=== PATIENT | male | born 1965 | race Caucasian/White ===

== ENCOUNTER → 2018-12-10 | Outpatient (CLI) | payer OTHER ==
[~2018-12-10] MED LIST: ALBIPROI INH; AZIT250 PO; HYDGUAL120 PO
== END | disposition home or self-care (01) ==
LOC: LAB EV 12:06 → LAB SHORT 12:06
DX: J02.9 Acute pharyngitis, unspecified (principal)
CPT/HCPCS: 87070

== ENCOUNTER → 2019-07-16 | Outpatient (CLI) | payer OTHER ==
[~2019-07-16] MED LIST changes: +ACET325 PO; +CEFU500T30 PO; +DOCU100 PO; +Florastor250 MG PO; +HYDR1TAB94 PO; +IBUP400 PO; +Nicoderm Cq1 EAC1 TOP
== END ==
LOC: LAB 09:00 → LAB SHORT 09:00
DX: R30.0 Dysuria (principal)
CPT/HCPCS: 87077; 87086; 87186

== ENCOUNTER 2019-07-27 20:30 | Inpatient (IN) | payer OTHER ==
[~2019-07-27] VITALS: Ht 175.3 cm; Wt 89.4 kg
[~2019-07-27 20:30] MED LIST changes: -ACET325 PO; -CEFU500T30 PO; -DOCU100 PO; -Florastor250 MG PO; -HYDR1TAB94 PO; -IBUP400 PO; -Nicoderm Cq1 EAC1 TOP
[2019-07-27 21:05] LABS: BASOPHILS ABSOLUTE AUTO 0.05 K/mm3 (0.00-0.23); BASOPHILS PERCENT AUTO 0 % (0-2); EOSINOPHILS ABSOLUTE AUTO 0.18 K/mm3 (0.00-0.68); EOSINOPHILS PERCENT AUTO 1 % (0-6); Hemoglobin 14.1 g/dL (13.5-17.5); IMMATURE GRAN ABSOLUTE AUTO 0.07 K/mm3 (0.00-0.10); IMMATURE GRAN PERCENT AUTO 0 % (0-1); LYMPHOCYTES ABSOLUTE AUTO 1.92 K/mm3 (0.84-5.20); LYMPHOCYTES PERCENT AUTO 10 % (21-46); MONOCYTES ABSOLUTE AUTO 1.47 K/mm3 (0.16-1.47); MONOCYTES PERCENT AUTO 7 % (4-13); Mean Corpuscular HGB 29.7 pg (26.0-34.0); Mean Corpuscular HGB Conc 33.6 g/dL (31.5-36.5); Mean Corpuscular Volume 88 fL (80-100); Mean Platelet Volume 9.4 fL (9.1-12.4); NEUTROPHILS ABSOLUTE AUTO 16.44 K/mm3 (1.96-9.15); NEUTROPHILS PERCENT AUTO 82 % (41-73); Platelet Count 282 K/mm3 (150-400); RDW Coefficient Variation 14.3 % (11.7-14.2); RDW Standard Deviation 46.2 fL (35.1-46.3); Red Blood Cell Count 4.75 M/mm3 (4.30-5.90); White Blood Cell Count 20.13 K/mm3 (4.00-11.30)
[2019-07-27 21:19] LABS: Bilirubin, Urine Neg (Neg); Blood, Urine 5+ (Neg); Glucose Qualitative, Urine Neg (Neg); Ketones, Urine Neg (Neg); Leukocyte Esterase, Urine 3+ (Neg); Nitrite, Urine Pos (Neg); Protein, Urine 3+ (Neg); Source, Urine Clean Catch; Specific Gravity, Urine 1.015 (1.003-1.022); Urobilinogen, Urine NORM (Normal)
[2019-07-27 21:23] LABS: Alanine Aminotransfer (ALT/SGP 41 U/L (12-78); Albumin, Blood 3.4 g/dL (3.4-5.0); Albumin/Globulin Ratio 0.8 (0.8-1.8); Alk Phos 94 U/L (50-136); Anion Gap 5 mmol/L (6-16); Aspartate Aminotrans (AST/SGOT 23 U/L (12-37); Bilirubin, Total 0.3 mg/dL (0.1-1.0); Blood Urea Nitrogen 22 mg/dL (8-24); Bun/Creatinine Ratio 21.6 (12.0-20.0); CO2, Blood 27 mmol/L (21-32); Chloride, Blood 107 mmol/L (98-108); Creatinine, Blood 1.02 mg/dL (0.60-1.20); Glomerular Filtration Rate >60 (60-); Glucose, Blood 109 mg/dL (70-99); Potassium, Blood 4.3 mmol/L (3.5-5.5); Sodium, Blood 139 mmol/L (136-145); Total Protein, Blood 7.4 g/dL (6.4-8.2)
[2019-07-27 21:26] LABS: Appearance, Urine Cloudy (Clear); Color, Urine Yellow (P-Yellow)
[2019-07-27 21:27] LABS: Bacteria Many /hpf; Squamous Epithelial Cells Rare /hpf (Few); White Blood Cells, Urine TNTC /hpf (0-5)
[2019-07-28] MEDS ORDERED: IBUP400 PO (00:29)
[2019-07-28] MEDS ORDERED: ACET325 PO (00:30)
[2019-07-28 05:12] LABS: BASOPHILS ABSOLUTE AUTO 0.03 K/mm3 (0.00-0.23); BASOPHILS PERCENT AUTO 0 % (0-2); EOSINOPHILS ABSOLUTE AUTO 0.04 K/mm3 (0.00-0.68); EOSINOPHILS PERCENT AUTO 0 % (0-6); Hematocrit 39.3 % (37.0-53.0); Hemoglobin 13.3 g/dL (13.5-17.5); IMMATURE GRAN PERCENT AUTO 1 % (0-1); LYMPHOCYTES ABSOLUTE AUTO 2.06 K/mm3 (0.84-5.20); LYMPHOCYTES PERCENT AUTO 10 % (21-46); MONOCYTES ABSOLUTE AUTO 1.75 K/mm3 (0.16-1.47); MONOCYTES PERCENT AUTO 9 % (4-13); Mean Corpuscular HGB 29.4 pg (26.0-34.0); Mean Corpuscular HGB Conc 33.8 g/dL (31.5-36.5); Mean Corpuscular Volume 87 fL (80-100); Mean Platelet Volume 9.9 fL (9.1-12.4); NEUTROPHILS ABSOLUTE AUTO 16.19 K/mm3 (1.96-9.15); NEUTROPHILS PERCENT AUTO 80 % (41-73); Platelet Count 253 K/mm3 (150-400); RDW Coefficient Variation 14.3 % (11.7-14.2); RDW Standard Deviation 45.7 fL (35.1-46.3); Red Blood Cell Count 4.53 M/mm3 (4.30-5.90); White Blood Cell Count 20.17 K/mm3 (4.00-11.30)
[2019-07-28 05:39] LABS: Anion Gap 8 mmol/L (6-16); Blood Urea Nitrogen 20 mg/dL (8-24); Bun/Creatinine Ratio 22.2 (12.0-20.0); CO2, Blood 23 mmol/L (21-32); Calcium, Blood 8.4 mg/dL (8.5-10.1); Chloride, Blood 107 mmol/L (98-108); Glomerular Filtration Rate >60 (60-); Glucose, Blood 106 mg/dL (70-99); Potassium, Blood 4.2 mmol/L (3.5-5.5); Sodium, Blood 138 mmol/L (136-145)
--- NOTE | 2019-07-28 13:51 | NUR ---
PATIENT BACK FROM STENT TO KIDNEY PROCEDURE ABOUT 10 MINUTES. STARTED SHAKING, C/O INCREASE PAIN "50", AND PER PCU SUSTAINED HEART RATE OF 160 SINUS TACH. RAPID CALLED. CAME IN AND TALKS TO PATIENT AND RELATIVE. GIVEN; TORADOL, FENTANYL AND TYLENOL PRIOR TO RAPID. APRESOLINE GIVEN PER ORDERS. PATIENT TRANSFERRED TO ICU. REPORT TO NURSE ZAHEER ABDALLA RN.
--- NOTE | 2019-07-28 14:27 | NUR ---
TRANSFER: PT ARRIVED TO ICU 11 VIA BED. REPORT RECEIVED FROM KITTY MENEZES. PT DISORIENTED, FEBRILE WITH TEMP 103, HR 130S. WITHIN 20 MIN OF BEING IN THE ROOM PT'S FEVER BROKE WITH TEMP DOWN TO 97.6F. PT DIAPHORETIC WITH FEVER BREAKING. HR DOWN TO 1 TEENS, BP 125/76 AND PT ORIENTED AGAIN. NEW IV STARTED, ROCEPHIN HAS BEEN GIVEN. NEPHROSTOMY BAG TO R LOWER BACK. SM AMT OF RED DRAINAGE IN THE TUBING, NOTHING IN THE BAG. PT'S FAMILY AT THE BEDSIDE. CONTINUING TO MONITOR.
--- NOTE | 2019-07-28 14:46 | NUR ---
Upon responding to a rpid response call for rm [id number], I met patient's spouse, Joann. I helped rely info to her and explain what was happening and where he was being taken (ICU-11) and why. I provided emotional support and a calming presents. I then walked her over to the [facility] and sat with her and talked about her move to [place] less than a year ago, her family unit complications and about her concerns for the patient. After being told that all is clear to rejoin her , I walked with her to patient's room and sat with her as they got settled, I talked with patient about how he is doing and how he is processing it all. They thanked me for the support as I left. I will continue to remain available to patient and family.
--- NOTE | 2019-07-28 17:34 | NUR ---
SHIFT SUMMARY: PT HAS BEEN RESTING IN BED SINCE ARRIVAL ON UNIT. SINCE HIS TEMEPRATURE CAME DOWN HE HAS NOT HAD ANY ISSUES WITH HR, DELIRIUM OR BP. HIS PAIN HAS BEEN CONTROLLED WELL AND HE WAS ABLE TO NAP FOR A COUPLE HOURS. HIS NEPHROSTOMY TUBE HAS RED, CLOUDY OUTPUT. HE VOIDED ONCE AND IT WAS DARK, TEA COLORED URINE. HE GOT UP TO THE CHAIR FOR HIS LINENS TO BE CHANGED AND IS BACK IN BED NOW. HE IS EATING A LITTLE BIT OF HIS DINNER CURRENTLY. NO OTHER REQUESTS AT THIS TIME.
--- NOTE | 2019-07-28 19:05 | NUR ---
ASSESSMENT/ASSUMED CARE PT SLEEPING, AWAKENS EASILY TO VERBAL STIMULI. REPORT RECEIVED AT BEDSIDE. PT TURNING SELF IN BED. C/O PAIN TO LEFT FLANK AND ABD 02/06. PT STATES,"IT IS A LOT BETTER AFTER THE LAST PAIN MED DOWN FROM 04/08". LUNGS CLEAR ON 2 LITERS O2 VIA NC. SPO2 99-100%. DECREASED O2 TO 1 LITER. DENIES SOB OR COUGH. HEART RATE REGULAR, DENIES CHEST PAIN OR PRESSURE. BP STABLE. NO EDEMA. SCD'S PLACED. BT+ ABD SOFT TO PALP. DENIES N/V. LEFT FLANK WITH NEPHROSTOMY, DRSG INTACT. DRAINING ELIUD URINE. IV 20G TO RIGHT HAND/WRIST WITH LR AT 100ML/HR. SITE CLEAR. IV 20G TO RIGHT AC SALINE LOCKED, FLUSHED WITHOUT DIFFICULTY, SITE CLEAR. PT TURNING AND MOVING SELF IN BED. REQUESTED COFFEE AND MILK, GIVEN. AT BEDSIDE.
--- NOTE | 2019-07-28 19:40 | NUR ---
PAIN PT C/O PAIN TO LEFT FLANK 02/06. REQUESTED PAIN MEDS. MED WITH TYLENOL AND TORADOL.
--- NOTE | 2019-07-29 00:40 | NUR ---
REASSESSMENT PT AWAKE, C/O LEFT FLANK PAIN 5/10, MED WITH FENTANYL 25 MCQ AND TYLENOL. LUNGS CLEAR ON ROOMAIR. O2 REMOVED DUE TO SPO2 AT 99% WHILE SLEEPING. PT VOIDED 200 ML ELIUD FOUL SMELLING URINE. LEFT NEPHROSTOMY EMPTIED 200 ML ELIUD URINE. URINE FROM NEPHRSOTOMY CLEARING, NO CLOTS NOTED. PT MOVING AND TURNING SELF IN BED.
--- NOTE | 2019-07-29 04:00 | NUR ---
REASSESSMENT PT AWAKE, MOVING AND TURNING SELF IN BED. C/O LEFT FLANK AND ABD PAIN 07/09, MED WITH FENTANYL AND TORADOL. PT REPORTS IMPROVMENT ON PAIN AFTER FENTANYL. LEFT NEPHROSTOMY DRAINING ELIUD URINE. PT ARFIBRILE. VSS. PT C/O BEING COLD, WARM BLANKET GIVEN
--- NOTE | 2019-07-29 05:43 | NUR ---
SHIFT SUMMARY PT RESTED QUIETLY DURING THE NIGHT. MED WITH FENTANYL 25 MCQ, TORADOL AND TYLENOL FOR PAIN WITH GOOD RESULTS. VSS. AFEBRILE. LEFT NEPHROSTOMY DRAINING ELIUD URINE. [place] CD&I. PT TURNING AND MOVING SELF IN BED. REPORT TO ON COMING NURSE
--- NOTE | 2019-07-29 08:00 | NUR ---
INITIAL ASSESSMENT PATIENT SLEEPING SOUNDLY UPON FIRST ENTERING ROOM. PATIENT WOKE TO VERBAL STIMULI. PATIENT ALERT AND ORIENTED X 4, AFEBRILE. PATIENT COMPLAINS OF 5/10 L FLANK AND ABDOMINAL PAIN. PRN PAIN MEDICATIONS BEING GIVEN PRECRIBED. PATIENT SATTING 96% ON RA. LUNGS CLEAR T/O. PATIENT REPORTS OCCASIONAL COUGH. PATIENT IN SR, HR 70S TO 80S. BP STABLE. PULSES STRONG. NO EDEMA NOTED. SCDS IN PLACE. GI WNL EXCEPT THAT PATIENT STATES "I THINK MY KIDNEY PAIN IS RADIATING TO MY ABDOMEN". LAST BM 2 DAYS AGO. NEPHROSTOMY TUBE IN PLACE TO LEFT KIDNEY. SITE WNL, DRESSING C/D/I. TUBE DRAINING ELIUD COLORED URINE. PATIENT ALSO VOIDING ELIUD COLORED URINE. LR INFUSING AT 100 MLS/ HOUR. BED LOW, CALL LIGHT IN REACH. WILL CONTINUE TO MONITOR PATIENT FREQUENTLY THROUGHOUT SHIFT.
--- NOTE | 2019-07-29 10:44 | NUR ---
DR. CH IN TO SEE PATIENT. DR. SOLIS CONTACTED DR. CH WOULD LIKE TO KNOW PATIENT PLAN TO TRANSFER OR DC HOME AND SEE DOCTOR OUTPATIENT FOR KIDNEY STONES. DR. CH ON PHONE WITH DR. SOLIS NOW.
--- NOTE | 2019-07-29 10:58 | NUR ---
DR. CH INFORMED OF E.COLI IN URINE ON CULTURE. DR. CH TALKED TO DR. SOLIS AND PATIENT WILL BE KEPT UNTIL THURSDAY ON IV ANTIBIOTICS, WILL THEN BE DISCHARGED, WILL CALL WILL'S OFFICE ON THURSDAY TO HAVE OFFICE SCHEDULE APPOINTMENT UROLOGIST APPOINTMENT IN [place] FOR PATIENT FOR KIDNEY STONES.
--- NOTE | 2019-07-29 11:07 | NUR ---
PATIENT AND PATIENT'S UPDATED ON PLAN OF CARE GOING FORWARD.
--- NOTE | 2019-07-29 12:29 | NUR ---
PATIENT WATCHING TV AND VISITING WITH UPON ENTERING ROOM. PATIENT GIVEN PRN PAIN MEDICATIONS FOR COMPLAINT OF PAIN IN L FLANK AND ABDOMEN. PATIENT AFEBRILE. VITAL SIGNS STABLE. NO OTHER ACUTE CHANGES TO NOTE ON AT THIS TIME. WILL CONTINUE TO MONITOR.
--- NOTE | 2019-07-29 15:46 | NUR ---
SHIFT SUMMARY PATIENT REMAINED ALERT AND ORIENTED T/O SHIFT. PATIENT REMAINED AFEBRILE. PATIENT GIVEN PRN PAIN MEDICATIONS FOR COMPLAINT OF PAIN IN L FLANK AND ABDOMEN. PATIENT VITAL SIGNS REMAINED STABLE. PATIENT CONTINUED TO VOID ELIUD COLORED URINE INTO BEDSIDE URINAL. ELIUD COLORED URINE DRAINING FROM L NEPHROSTOMY. IV SALINE LOCKED. PATIENT ABLE TO AMBULATE WELL ON OWN IN ROOM. PATIENT HAD SHOWER. REPORT GIVEN TO RECEIVING MEDICAL FLOOR NURSE. PATIENT IS BEING TRANSFERRED AT THIS TIME TO ROOM 354.
--- NOTE | 2019-07-29 17:42 | NUR ---
TRANSFER/SHIFT SUMMARY PATIENT ARRIVED TO FLOOR VIA WHEELCHAIR AROUND 1550. PT C/O 9/10 PAIN IN L FLANK RADIATING TO ABDOMEN. PRN PAIN MEDS GIVEN. NEPHROSTOMY SITE DRESSING ON LEFT FLANK IS C/D/I, DRAINING CLEAR YELLOW URINE. R WRIST IV INFILTRATED, NEW IV STARTED ON LEFT UPPER FOREARM. PT WAS COLD/SHIVERING AND C/O NUMBNESS IN FINGERS. HEAT TURNED UP IN ROOM, WARM BLANKETS APPLIED, SCDS ON. SHIVERING STOPPED AND PT STATES NUMBNESS HAS GONE AWAY. LUNGS CTA ON RA, DENIES SOB OR OTHER DISCOMFORT.
[2019-07-30 05:00] LABS: BASOPHILS ABSOLUTE AUTO 0.02 K/mm3 (0.00-0.23); BASOPHILS PERCENT AUTO 0 % (0-2); EOSINOPHILS ABSOLUTE AUTO 0.07 K/mm3 (0.00-0.68); EOSINOPHILS PERCENT AUTO 1 % (0-6); Hematocrit 35.5 % (37.0-53.0); Hemoglobin 11.8 g/dL (13.5-17.5); IMMATURE GRAN ABSOLUTE AUTO 0.03 K/mm3 (0.00-0.10); IMMATURE GRAN PERCENT AUTO 0 % (0-1); LYMPHOCYTES ABSOLUTE AUTO 1.37 K/mm3 (0.84-5.20); LYMPHOCYTES PERCENT AUTO 20 % (21-46); MONOCYTES ABSOLUTE AUTO 0.57 K/mm3 (0.16-1.47); MONOCYTES PERCENT AUTO 8 % (4-13); Mean Corpuscular HGB 29.1 pg (26.0-34.0); Mean Corpuscular HGB Conc 33.2 g/dL (31.5-36.5); Mean Corpuscular Volume 88 fL (80-100); Mean Platelet Volume 10.4 fL (9.1-12.4); NEUTROPHILS ABSOLUTE AUTO 4.96 K/mm3 (1.96-9.15); NEUTROPHILS PERCENT AUTO 71 % (41-73); Platelet Count 194 K/mm3 (150-400); RDW Coefficient Variation 14.3 % (11.7-14.2); RDW Standard Deviation 46.8 fL (35.1-46.3); Red Blood Cell Count 4.05 M/mm3 (4.30-5.90); White Blood Cell Count 7.02 K/mm3 (4.00-11.30)
--- NOTE | 2019-07-30 05:21 | NUR ---
SHIFT SUMMARY PT TREATED SEVERAL TIMES WITH PRN FENTANYL, TYLENOL, AND TORADOL FOR POAIN TO L FLANK. NEPHROSTOMY SITE IS C/D/I, DRAINING DARK YELLOW URINE. PT ALSO VOIDING SMALL AMOUNT OF URINE. A&O X4, INDEPENDENT IN RM. LS CLEAR, RESP E/U ON RA. PLAN IS FOR PT TO D/C THURSDAY AND THEN F/U WITH DR SOLIS AND JO ANN RODRIGUEZ THURSDAY. WILL CONT TO MONITOR AND PROVIDE CARE UNTIL PRESUMED BY ONCOMING RN.
[2019-07-30 05:25] LABS: Anion Gap 5 mmol/L (6-16); Blood Urea Nitrogen 16 mg/dL (8-24); Bun/Creatinine Ratio 20.8 (12.0-20.0); CO2, Blood 25 mmol/L (21-32); Calcium, Blood 8.4 mg/dL (8.5-10.1); Chloride, Blood 108 mmol/L (98-108); Creatinine, Blood 0.77 mg/dL (0.60-1.20); Glomerular Filtration Rate >60 (60-); Glucose, Blood 103 mg/dL (70-99); Phosphorus, Blood 2.7 mg/dL (2.5-4.9); Sodium, Blood 138 mmol/L (136-145)
--- NOTE | 2019-07-30 17:19 | NUR ---
SUMMARY PT SITTING UP IN BED WATCHING TV, PT HAS BEEN PLEASANT AND COOPERATIVE WITH CARE, INDEPENDENT IN THE ROOM, L NEPHROSTOMY DRAINING WELL, PT VERBALIZED UNDERSTANDING OF HOW THE NEPHROSTOMY WORKS AND THAT HE WILL BE ABLE TO MANAGE IT AT HOME, PT MED PER EMAR FOR PAIN, VSS, NO ACUTE CHANGES, WILL CONT TO MONITOR
--- NOTE | 2019-07-31 04:14 | NUR ---
Shift summary. VSS. Pt medicated x 2 last pm for back pain/ kidney stone with norco with adequate relief. Pt slept most of shift. Pt anticipating d/c in am.
[2019-07-31] MEDS ORDERED: DOCU100 PO (08:55)
[2019-07-31] MEDS ORDERED: HYDR1TAB94 PO (08:55)
[2019-07-31] MEDS ORDERED: Nicoderm Cq1 EAC1 TOP (08:56)
[2019-07-31] MEDS ORDERED: Florastor250 MG PO (08:56)
[2019-07-31] MEDS ORDERED: CEFU500T30 PO (08:57)
--- NOTE | 2019-07-31 09:24 | NUR ---
SUMMARY PT DISCHARGED TO HOME, PT VERBALIZED UNDERSTANDING OF DISCHARGE INSTRUCTIONS REGARDING DISCHARGE MEDS AND FOLLOW UP APPOINTMENTS, PT EDUCATED ABOUT HOW TO CARE FOR THE NEPHROSTOMY, PT DECLINED A WHEELCHAIR, ABLE TO AMBULATE SAFELY TO THE ELEVATORS
== END 2019-07-31 09:15 | disposition home or self-care (01) | DRG 872 ==
LOC: ER 20:30 → ICUW 23:25 → MEDS 23:25 → ICUW 07-28 13:50 → MEDS 07-29 15:54 → ENPENDDIS 07-31 07:51 → MEDS 07-31 09:15
PROVIDERS: Emergency Medicine; Internal Medicine; ADMIT Family Medicine
PROC: 0T9430Z Drainage of Left Kidney Pelvis with Drainage Device, Percutaneous Approach (ICD-10-PCS; principal; 2019-07-28)
PROC: BT121ZZ Fluoroscopy of Left Kidney using Low Osmolar Contrast (ICD-10-PCS; 2019-07-28)
DX: A41.51 Sepsis due to Escherichia coli [E. coli] (principal); N39.0 Urinary tract infection, site not specified; J95.89 Other postprocedural complications and disorders of respiratory system, not elsewhere classified; N13.30 Unspecified hydronephrosis; N20.0 Calculus of kidney
CPT/HCPCS: 36415; 50432; 74176; 80048; 80053; 81001; 82652; 82947; 83605; 83970; 84100; 85025; 87040; 87077; 87086; 87186; 96361; 96365; 96375; 99152; 99153; 99285-25; A9270; A9270-GY; C1729; C1769; C1887; C1894; J0360; J0696; J1885; J2250; J2405; J3010; J7030; J7040; J7050; J7120; Q9967

== ENCOUNTER → 2019-08-02 | Outpatient (CLI) | payer OTHER ==
[~2019-08-02] MED LIST changes: +ACET325 PO; +CEFU500T30 PO; +DOCU100 PO; +Florastor250 MG PO; +HYDR1TAB94 PO; +IBUP400 PO; +Nicoderm Cq1 EAC1 TOP
[2019-08-02 20:13] LABS: BASOPHILS ABSOLUTE AUTO 0.06 K/mm3 (0.00-0.23); BASOPHILS PERCENT AUTO 1 % (0-2); EOSINOPHILS PERCENT AUTO 4 % (0-6); Hematocrit 42.2 % (37.0-53.0); IMMATURE GRAN ABSOLUTE AUTO 0.07 K/mm3 (0.00-0.10); IMMATURE GRAN PERCENT AUTO 1 % (0-1); LYMPHOCYTES ABSOLUTE AUTO 3.55 K/mm3 (0.84-5.20); LYMPHOCYTES PERCENT AUTO 33 % (21-46); MONOCYTES PERCENT AUTO 8 % (4-13); Mean Corpuscular HGB Conc 33.2 g/dL (31.5-36.5); Mean Corpuscular Volume 88 fL (80-100); Mean Platelet Volume 9.7 fL (9.1-12.4); NEUTROPHILS PERCENT AUTO 54 % (41-73); Platelet Count 431 K/mm3 (150-400); RDW Coefficient Variation 14.1 % (11.7-14.2); RDW Standard Deviation 45.8 fL (35.1-46.3); Red Blood Cell Count 4.82 M/mm3 (4.30-5.90); White Blood Cell Count 10.88 K/mm3 (4.00-11.30)
[2019-08-02 20:26] LABS: Alanine Aminotransfer (ALT/SGP 103 U/L (12-78); Albumin, Blood 3.2 g/dL (3.4-5.0); Albumin/Globulin Ratio 0.7 (0.8-1.8); Alk Phos 232 U/L (50-136); Anion Gap 8 mmol/L (6-16); Aspartate Aminotrans (AST/SGOT 50 U/L (12-37); Bilirubin, Total 0.2 mg/dL (0.1-1.0); Blood Urea Nitrogen 19 mg/dL (8-24); Bun/Creatinine Ratio 23.4 (12.0-20.0); CHOL/HDL RATIO 9.8; CO2, Blood 25 mmol/L (21-32); Calcium, Blood 9.1 mg/dL (8.5-10.1); Chloride, Blood 109 mmol/L (98-108); Cholesterol 205 mg/dL (50-200); Creatinine, Blood 0.81 mg/dL (0.60-1.20); Globulin, Blood 4.6 g/dL (2.2-4.0); Glomerular Filtration Rate >60 (60-); Glucose, Blood 86 mg/dL (70-99); HDL Cholesterol 21 mg/dL (>39); LDL/HDL RATIO 6.5; Low Density Lipoprotein Chol 137 mg/dL (0-110); Potassium, Blood 4.3 mmol/L (3.5-5.5); Sodium, Blood 142 mmol/L (136-145); Total Protein, Blood 7.8 g/dL (6.4-8.2); Triglycerides 237 mg/dL (30-160); Very Low Density Lipoprot Chol 47 mg/dL (6-32)
== END ==
LOC: LAB 16:45 → LAB SHORT 16:45
PROVIDERS: Physician Assistant
DX: Z13.220 Encounter for screening for lipoid disorders (principal)
CPT/HCPCS: 80053; 80061; 85025

== ENCOUNTER 2019-08-09 12:18 | Emergency (ER) | payer OTHER ==
[~2019-08-09] VITALS: Ht 175.3 cm; Wt 88.5 kg
[2019-08-09 13:40] LABS: Source, Urine Catheter
[2019-08-09 13:51] LABS: Bilirubin, Urine Neg (Neg); Blood, Urine 5+ (Neg); Glucose Qualitative, Urine Neg (Neg); Ketones, Urine 1+ (Neg); Leukocyte Esterase, Urine 2+ (Neg); Nitrite, Urine Neg (Neg); Protein, Urine 2+ (Neg); Urobilinogen, Urine NORM (Normal)
[2019-08-09 13:59] LABS: BASOPHILS ABSOLUTE AUTO 0.07 K/mm3 (0.00-0.23); BASOPHILS PERCENT AUTO 1 % (0-2); EOSINOPHILS ABSOLUTE AUTO 0.54 K/mm3 (0.00-0.68); EOSINOPHILS PERCENT AUTO 4 % (0-6); Hematocrit 41.4 % (37.0-53.0); Hemoglobin 13.7 g/dL (13.5-17.5); IMMATURE GRAN ABSOLUTE AUTO 0.07 K/mm3 (0.00-0.10); IMMATURE GRAN PERCENT AUTO 1 % (0-1); LYMPHOCYTES ABSOLUTE AUTO 3.59 K/mm3 (0.84-5.20); LYMPHOCYTES PERCENT AUTO 26 % (21-46); MONOCYTES ABSOLUTE AUTO 0.87 K/mm3 (0.16-1.47); MONOCYTES PERCENT AUTO 6 % (4-13); Mean Corpuscular HGB 28.5 pg (26.0-34.0); Mean Corpuscular HGB Conc 33.1 g/dL (31.5-36.5); Mean Corpuscular Volume 86 fL (80-100); Mean Platelet Volume 9.3 fL (9.1-12.4); NEUTROPHILS ABSOLUTE AUTO 8.63 K/mm3 (1.96-9.15); NEUTROPHILS PERCENT AUTO 63 % (41-73); Platelet Count 379 K/mm3 (150-400); RDW Coefficient Variation 14.6 % (11.7-14.2); RDW Standard Deviation 46.5 fL (35.1-46.3); White Blood Cell Count 13.77 K/mm3 (4.00-11.30)
[2019-08-09 14:04] LABS: Appearance, Urine Hazy (Clear); Color, Urine Yellow (P-Yellow)
[2019-08-09 14:14] LABS: Bacteria Many /hpf; Calcium Oxalate Crystals Mod /hpf; Red Blood Cells, Urine 25-50 /hpf (0-2); Squamous Epithelial Cells Many /hpf (Few)
[2019-08-09 14:15] LABS: Mucus Light (0-Heavy)
[2019-08-09 14:19] LABS: Alanine Aminotransfer (ALT/SGP 43 U/L (12-78); Albumin, Blood 3.6 g/dL (3.4-5.0); Albumin/Globulin Ratio 0.9 (0.8-1.8); Alk Phos 142 U/L (50-136); Anion Gap 6 mmol/L (6-16); Aspartate Aminotrans (AST/SGOT 18 U/L (12-37); Bilirubin, Total 0.2 mg/dL (0.1-1.0); Blood Urea Nitrogen 16 mg/dL (8-24); Bun/Creatinine Ratio 17.8 (12.0-20.0); CO2, Blood 27 mmol/L (21-32); Calcium, Blood 9.2 mg/dL (8.5-10.1); Chloride, Blood 105 mmol/L (98-108); Globulin, Blood 3.9 g/dL (2.2-4.0); Glomerular Filtration Rate >60 (60-); Glucose, Blood 94 mg/dL (70-99); Sodium, Blood 138 mmol/L (136-145); Total Protein, Blood 7.5 g/dL (6.4-8.2)
== END 2019-08-09 14:46 | disposition home or self-care (01) ==
LOC: ER 12:18
PROVIDERS: Emergency Medicine
DX: N20.0 Calculus of kidney (principal); R31.9 Hematuria, unspecified; Z93.6 Other artificial openings of urinary tract status; Z87.442 Personal history of urinary calculi; Z87.440 Personal history of urinary (tract) infections; Z79.899 Other long term (current) drug therapy; F17.200 Nicotine dependence, unspecified, uncomplicated
CPT/HCPCS: 36415; 80053; 81001; 85025; 87077; 87086; 87186; 99284; J7030

== ENCOUNTER → 2020-08-29 | Outpatient (CLI) | payer OTHER ==
[2020-08-29 18:06] LABS: Body Fluid Crystals NEG (NEGATIVE)
[2020-08-29 18:15] LABS: BODY FLUID RBC 0.005 M/mm3 (0-0); RBC Count, Synovial Fluid 5000 /mm3 (0-0); WBC Count, Synovial Fluid 2184 /mm3 (0-180)
[2020-08-29 18:59] LABS: Appearance, Synovial Fluid Cloudy (Clear); Color, Synovial Fluid Yellow (None-P Yel); Lymphs, Synovial Fluid 13 % (0-15); Monocytes/Macrophages, Synovia 9 % (0-65); Neutrophils, Synovial Fluid 77 % (0-24)
== END ==
LOC: LAB EV 16:48 → LAB SHORT 16:48
PROVIDERS: Chiropractor
DX: M70.22 Olecranon bursitis, left elbow (principal)
CPT/HCPCS: 87070; 87075; 87205; 89051; 89060

== ENCOUNTER 2021-06-08 21:03 | Emergency (ER) | payer OTHER ==
[~2021-06-08] VITALS: Ht 175.3 cm; Wt 88.5 kg
[2021-06-08 21:36] LABS: Source, Urine Clean Catch
[2021-06-08 21:40] LABS: Bilirubin, Urine Neg (Neg); Blood, Urine 1+ (Neg); Glucose Qualitative, Urine Neg (Neg); Ketones, Urine Neg (Neg); Leukocyte Esterase, Urine Neg (Neg); Nitrite, Urine Neg (Neg); Protein, Urine Neg (Neg); Specific Gravity, Urine 1.005 (1.003-1.022); Urobilinogen, Urine NORM (Normal)
[2021-06-08 21:42] LABS: BASOPHILS ABSOLUTE AUTO 0.08 K/mm3 (0.00-0.23); BASOPHILS PERCENT AUTO 1 % (0-2); EOSINOPHILS ABSOLUTE AUTO 0.52 K/mm3 (0.00-0.68); EOSINOPHILS PERCENT AUTO 4 % (0-6); Hematocrit 43.9 % (37.0-53.0); Hemoglobin 15.3 g/dL (13.5-17.5); IMMATURE GRAN ABSOLUTE AUTO 0.04 K/mm3 (0.00-0.10); IMMATURE GRAN PERCENT AUTO 0 % (0-1); LYMPHOCYTES ABSOLUTE AUTO 5.08 K/mm3 (0.84-5.20); LYMPHOCYTES PERCENT AUTO 40 % (21-46); MONOCYTES ABSOLUTE AUTO 0.89 K/mm3 (0.16-1.47); MONOCYTES PERCENT AUTO 7 % (4-13); Mean Corpuscular HGB 29.9 pg (26.0-34.0); Mean Corpuscular HGB Conc 34.9 g/dL (31.5-36.5); Mean Corpuscular Volume 86 fL (80-100); Mean Platelet Volume 10.4 fL (9.1-12.4); NEUTROPHILS ABSOLUTE AUTO 6.04 K/mm3 (1.96-9.15); NEUTROPHILS PERCENT AUTO 48 % (41-73); Platelet Count 235 K/mm3 (150-400); RDW Coefficient Variation 13.7 % (11.7-14.2); RDW Standard Deviation 43.1 fL (35.1-46.3); Red Blood Cell Count 5.11 M/mm3 (4.30-5.90); White Blood Cell Count 12.65 K/mm3 (4.00-11.30)
[2021-06-08 21:43] LABS: Appearance, Urine Clear (Clear); Color, Urine Pale Yellow (P-Yellow)
[2021-06-08 21:47] LABS: Bacteria Not Seen /hpf; Red Blood Cells, Urine 0-2 /hpf (0-2); Squamous Epithelial Cells Not Seen /hpf (Few); White Blood Cells, Urine 0-2 /hpf (0-5)
[2021-06-08 22:07] LABS: Alanine Aminotransfer (ALT/SGP 29 U/L (12-78); Albumin/Globulin Ratio 1.1 (0.8-1.8); Alk Phos 83 U/L (50-136); Anion Gap 7 mmol/L (6-16); Aspartate Aminotrans (AST/SGOT 22 U/L (12-37); Bilirubin, Total 0.3 mg/dL (0.1-1.0); Blood Urea Nitrogen 12 mg/dL (8-24); Bun/Creatinine Ratio 12.1 (12.0-20.0); CO2, Blood 23 mmol/L (21-32); Calcium, Blood 8.7 mg/dL (8.5-10.1); Chloride, Blood 110 mmol/L (98-108); Creatinine, Blood 0.99 mg/dL (0.60-1.20); Globulin, Blood 3.5 g/dL (2.2-4.0); Glomerular Filtration Rate >60 (60-); Glucose, Blood 102 mg/dL (70-99); Potassium, Blood 3.6 mmol/L (3.5-5.5); Sodium, Blood 140 mmol/L (136-145); Total Protein, Blood 7.5 g/dL (6.4-8.2)
[2021-06-08] MEDS ORDERED: ONDA4ODT MM (23:25)
[2021-06-08] MEDS ORDERED: IBUP800 PO (23:25)
== END 2021-06-08 23:30 | disposition home or self-care (01) ==
LOC: ER 21:03
PROVIDERS: Physician Assistant
DX: N23 Unspecified renal colic (principal); N20.1 Calculus of ureter; F17.200 Nicotine dependence, unspecified, uncomplicated
CPT/HCPCS: 36415; 74176; 80053; 81001; 83690; 85025; 96374; 99284-25; J1885

== ENCOUNTER → 2021-09-03 | Outpatient (CLI) | payer OTHER ==
[~2021-09-03] MED LIST changes: +IBUP800 PO; +ONDA4ODT MM
== END | disposition home or self-care (01) ==
LOC: LAB SHORT 11:15 → LAB 11:15
DX: R10.9 Unspecified abdominal pain (principal)
CPT/HCPCS: 87077; 87086; 87186

== ENCOUNTER → 2025-09-13 | Outpatient (CLI) | payer OTHER ==
[~2025-09-13] MED LIST changes: +Prednisone20 MG PO
== END ==
LOC: LAB 10:35 → LAB SHORT 10:35
DX: R30.0 Dysuria (principal)
CPT/HCPCS: 87077; 87086; 87186